=== PATIENT | female | born 1955 | race Caucasian/White ===

== ENCOUNTER 2025-07-31 07:46 | Inpatient (IN) ==
[2025-07-31 08:03] VITALS: TEMP 98.8
--- NOTE | 2025-07-31 08:05 | Emergency Department Note ---
History of Present Illness General Stated complaint: CHEST PAIN Time Seen by Provider: 07/31/25 07:48 History of Present Illness Maximum Pain Intensity: 8 This is a 70-year-old female that presents to the emergency department via EMS with complaints of "chest pain". The patient woke up today noting central chest pain. EMS summoned. Patient had total of 3 nitro at home, 1 in route. She also had a total of four 81mg aspirin. The patient describes a discomfort in the center of the chest as significant, 8/10. Minimal radiation to the back. No tearing pain. No nausea or vomiting. No preceding or current illness. No fever. No history of NM or PE. Home Medications Medication Instructions Recorded Confirmed Type alprazolam 0.25 mg tablet 0.25 mg PO DAILY PRN Anxiety 07/08/24 07/31/25 History cholecalciferol (vitamin D3) 25 25 mcg PO DAILY 07/08/24 07/31/25 History mcg (1,000 unit) capsule (Vitamin D3) levothyroxine 50 mcg tablet 50 mcg PO DAILY 07/08/24 07/31/25 History lisinopril 10 mg tablet 10 mg PO DAILY 07/08/24 07/31/25 History riboflavin (vitamin B2) 100 mg 100 mg PO DAILY PRN Unknown 07/08/24 07/31/25 History tablet simethicone 80 mg chewable tablet 80 mg PO DAILY PRN Constipation 07/08/24 07/31/25 History famotidine 20 mg tablet 20 mg PO BID 07/31/25 07/31/25 History nitroglycerin 0.4 mg sublingual 0.4 mg buccal ONCE PRN Chest Pain 07/31/25 07/31/25 History tablet Allergies Allergy/AdvReac Type Severity Reaction Status Date / Time sumatriptan Allergy throat Verified 06/09/25 13:52 tightness Past Med/Surg History Problem List (Updated 07/31/25 @ 16:37 by Alcides Posey PA-C) STEMI (ST elevation myocardial infarction) (Acute) Heart palpitations (Acute) Chest pain (Acute) Chronic SI joint pain Lumbar facet joint syndrome Chronic low back pain Stress incontinence HTN (hypertension) Hypothyroidism Surgical History History of breast lift History of bilateral knee replacement Social History Smoking Status: Never smoker Hx Alcohol Use: Yes Alcohol type Comment: socially Hx Substance Use: No Preferred Language: Micronesian Communication Ability: Effective Visual Impairment: No Limitations Hearing Ability: Normal Beliefs That Will Affect Care: None marital status: Current Living Situation: Spouse current occupational status: employed current occupation: clinical therapist in behavioral health with [employer] Feels Safe at Home: Yes Review of Systems A total of 10 systems reviewed and were otherwise negative Physical Exam Vital Signs Vital Signs - 24 hr 07/31/25 07:50 07/31/25 07:58 Temperature 37.1 C Temperature Source Oral Pulse Rate 101 H 97 H Pulse Rhythm Regular Pulse Strength Normal Respiratory Rate 19 Respiratory Effort / Characteristics Non-Labored Spontaneous Respiratory Depth Normal Respiratory Pattern Regular Blood Pressure 175/101 H Blood Pressure Mean 125 Pulse Oximetry 99 Oxygen Delivery Method Room Air Sepsis Recent Fever Within 48 Hours No Sepsis New/Unexplained Change in Mental Status No Sepsis Action Taken by Nursing Physician Notified VITAL SIGNS - Vital signs and nursing notes were reviewed. Hypertensive, stable and afebrile. GENERAL - 70-year-old female appearing her stated age who is in no acute distress but appears to be in pain. Communicates well with provider and answers questions appropriately. SKIN - Without rashes. No meningeal or petechial rash. HEAD - NC/AT. EYES - PERRL with EOMI bilaterally. Sclera anicteric. EARS - No deformities of external structures noted on gross examination bilaterally. NOSE - Midline and without cyanosis. No epistaxis or purulent drainage noted. MOUTH/OROPHARYNX - Without perioral cyanosis. NECK - Neck with FROM. No nuchal rigidity. LUNGS - Chest wall symmetric without accessory muscle use, intercostals retractions, or central cyanosis. Normal vesicular breath sounds CTA B/L. No wheezes, rales, or rhonchi appreciated. CARDIAC - RRR ABDOMEN - Abdominal contour normal without pulsations or visible masses. BS normoactive all four quadrants. No tenderness, palpable masses, hepatosplenomegaly, or ascites noted. EXTREMITIES - No clubbing or peripheral cyanosis. +5/5 strength noted in UE/LE bilaterally. NEUROLOGIC - Cranial nerves II through XII grossly intact. PSYCH -alert, oriented and pleasant on exam Course Administered Medications Acetaminophen (Acetaminophen 325 Mg Tab) 650 mg PO Q4H PRN PRN Reason: MILD Pain (Scale 1,2,3) Stop: 08/30/25 09:20 Last Admin: 07/31/25 13:33 Dose: 650 mg Documented By: JULIAN Atorvastatin Calcium (Atorvastatin 40 Mg Tab) 80 mg PO QAM [facility] Stop: 08/30/25 09:24 Last Admin: 07/31/25 13:33 Dose: 80 mg Documented By: JULIAN Metoprolol Tartrate (Metoprolol Tartrate 25 Mg Tab) 25 mg PO BID [facility] Stop: 08/30/25 09:29 Last Admin: 07/31/25 13:33 Dose: 25 mg Documented By: JULIAN Miscellaneous (Icu Protocol For Hyperglycemia) 1 each N/A ACHS [facility] Stop: 08/02/25 13:39 Last Admin: 07/31/25 15:00 Dose: Not Given Documented By: JULIAN Discontinued Medications Epinephrine HCl (Epinephrine 1.5" Ndl 0.1 Mg/Ml Syr) Confirm Administered Dose 2 mg IV .STK-MED ONE Stop: 07/31/25 08:09 Last Admin: 07/31/25 09:28 Dose: Not Given Documented By: dorcas Fentanyl Citrate (Fentanyl Citrate Pf 100 Mcg/2 Ml Vial) Confirm Administered Dose 100 mcg .ROUTE .STK-MED ONE Stop: 07/31/25 08:03 Last Increment: 07/31/25 09:24 Dose: 50 mcg Documented By: dorcas Heparin Sodium (Porcine) (Heparin (Porcine) 1000 Unit/Ml 10 Ml (Manufacturing Engineering Technician Use Only)) Confirm Administered Dose 10,000 units .ROUTE .STK-MED ONE Stop: 07/31/25 08:03 Last Admin: 07/31/25 09:25 Dose: 10,000 units Documented By: dorcas Heparin Sodium (Porcine) (Heparin (Porcine) 1000 Unit/Ml 10 Ml (Manufacturing Engineering Technician Use Only)) Confirm Administered Dose 10,000 units .ROUTE .STK-MED ONE Stop: 07/31/25 08:32 Last Admin: 07/31/25 09:28 Dose: 1,000 units Documented By: dorcas Heparin Sodium/Sodium Chloride (Heparin In Nss Infusion 1000 Unit/500 Ml (2 U/Ml) Bag) Confirm Administered Dose 3,000 units IV .STK-MED ONE Stop: 07/31/25 08:03 Last Admin: 07/31/25 09:25 Dose: 3,000 units Documented By: dorcas Acetaminophen (Ofirmev) 1,000 mg in 100 mls @ 400 mls/hr IV NOW STA Stop: 07/31/25 11:26 Last Infusion: 07/31/25 13:12 Dose: Infused Documented By: Admin: 07/31/25 11:50 Dose: 400 mls/hr Documented By: FLOR Ioversol (Optiray 350) Confirm Administered Dose 1 ml .ROUTE .STK-MED ONE Stop: 07/31/25 08:04 Last Admin: 07/31/25 09:26 Dose: 150 ml Documented By: dorcas Midazolam HCl (Midazolam Hcl 1 Mg/Ml 2ml Vial) Confirm Administered Dose 2 mg .ROUTE .STK-MED ONE Stop: 07/31/25 08:03 Last Admin: 07/31/25 09:25 Dose: 2 mg Documented By: dorcas Nicardipine HCl (Nicardipine 2,000 Mcg/20 Ml Syr) Confirm Administered Dose 2,000 mcg .ROUTE .STK-MED ONE Stop: 07/31/25 08:04 Last Admin: 07/31/25 09:27 Dose: 2,000 mcg Documented By: dorcas Nitroglycerin/Dextrose (Nitroglycerin/D5w 100mcg/Ml 20ml Syr) Confirm Administered Dose 2,000 mcg .ROUTE .STK-MED ONE Stop: 07/31/25 08:04 Last Admin: 07/31/25 09:27 Dose: 2,000 mcg Documented By: dorcas Ticagrelor (Ticagrelor 90 Mg Tab) Confirm Administered Dose 180 mg .ROUTE .STK- MED ONE Stop: 07/31/25 08:10 Last Admin: 07/31/25 09:28 Dose: 180 mg Documented By: dorcas Medical Decision Making Laboratory Data 07/31/25 07:56 07/31/25 07:56 Lab Results 07/31/25 07/31/25 Range/Units 07:56 07:59 WBC 7.84 (4.8-10.8) K/ul RBC 4.09 L (4.20-5.40) M/uL Hgb 13.1 (12.0-16.0) g/dL POC Hgb 12.9 (12.0-16.0) g/dl Hct 38.9 (37.0-47.0) % POC Hct 38 (37-47) % MCV 95.1 (80.0-100.0) fL MCH 32.0 (25.0-34.0) pg MCHC 33.7 (32.0-36.0) g/dL RDW Std Deviation 45.8 (36.4-46.3) fL RDW Coeff of Obi 13.1 (11.5-14.5) % Plt Count 333 (130-400) K/uL MPV 9.3 L (9.4-12.4) fL Immature Gran % (Auto) 0.1 % Neut % (Auto) 61.5 % Lymph % (Auto) 29.5 % [place] % (Auto) 7.1 % Eos % (Auto) 1.3 % Baso % (Auto) 0.5 % Neut # (Auto) 4.82 (1.40-6.50) K/uL Lymph # (Auto) 2.31 (1.20-3.40) K/uL [place] # (Auto) 0.56 (0.11-0.59) K/uL Eos # (Auto) 0.10 (0.00-0.50) K/uL Baso # (Auto) 0.04 (0.00-0.20) K/uL Immature Gran # (Auto) 0.01 (0.01-0.20) K/uL PT 10.1 (9.0-12.0) Seconds INR 1.0 (0.9-1.1) APTT 23 (21-31) Seconds PTT Ratio 0.8 POC Sodium 144 (135-144) mmol/L Sodium 141 (136-145) mmol/L POC Potassium 3.5 (3.3-5.0) mmol/L Potassium 3.5 (3.5-5.1) mmol/L POC Chloride 106 (101-112) mmol/L Chloride 108 H (98-107) mmol/L Carbon Dioxide 27 (21-32) mmol/L POC Total CO2 23 L (24-31) mmol/L Anion Gap 6 (3-11) POC Anion Gap 20.0 (16-25) mmol/L POC BUN 13 (7-18) mg/dl BUN 15 (6-23) mg/dl Creatinine 0.58 L (0.6-1.2) mg/dl POC Creatinine 0.6 (0.6-1.3) mg/dl Est Cr Clr Drug Dosing 90.9 ml/min eGFR 98.51 BUN/Creatinine Ratio 25.9 H (10-20) Glucose 143 H (70-99(Fasting)) mg/dl POC Glucose (other) 135 H (70-99) mg/dl Estimat Average Glucose 108 mg/dl Hemoglobin A1c 5.4 (4.5-5.6) % Calcium 8.7 (8.6-10.3) mg/dl POC Ioniz Calcium Kasi 1.19 (1.12-1.32) mmol/l Magnesium 1.8 (1.7-2.4) mg/dl Total Bilirubin 0.3 (0.2-1.0) mg/dl AST 55 H (13-39) U/L ALT 86 H (7-52) U/L Alkaline Phosphatase 63 (34-104) U/L Troponin I High Sens 194.6 H* (0-14) pg/ml Total Protein 6.4 (6.0-8.3) gm/dl Albumin 4.2 (3.4-5.0) gm/dl Globulin 2.2 L (2.5-4.0) gm/dl Albumin/Globulin Ratio 1.9 (0.9-2) Lipase 20 (11-82) U/L TSH 2.761 (0.300-4.500) uIu/ml MDM Narrative Patient was seen and evaluated as above in room A03. Review was performed of triage nursing notes and vital signs. I did review pertinent previous visits and patient history. After obtaining a thorough history and physical examination the above work up was performed. Patient presents to us today for evaluation of chest pain. An EKG was performed and reveals ST elevation myocardial infarction. This is a dynamic change compared to EKG performed on her recent visit. Heart alert was called. The Manufacturing Engineering Technician team immediately presented to bedside and the patient was taken to the Manufacturing Engineering Technician for further evaluation and management. Labs then resulted. There is no leukocytosis or concerning anemia. Coags are normal. No evidence of emergent kidney or liver failure. There is initial troponin elevation at 194. TSH was euthyroid state. Lipase negative. Chest x- ray ordered however the patient was taken promptly to the Manufacturing Engineering Technician noting the heart alert. The patient did have a negative chest x-ray about 1 week ago. Case also discussed with the hospitalist service. Please refer to further documentation regarding her stay. In the evaluation and treatment of this patient the following differential diagnoses were entertained: NM, PE, pericarditis, costochondritis, dissection, among others Impression & Plan STEMI (ST elevation myocardial infarction), Chest pain Discharge Plan Visit Data Stated Complaint: CHEST PAIN ED Provider: Corrine Moreno ED Midlevel Provider: Alcides Posey Discharge Problem: STEMI (ST elevation myocardial infarction), Chest pain Patient Disposition: Admitted As Inpatient Condition: Good Discharge Instructions Interventions: ED Discharge Assessment Last Done: 07/31/25 08:07
[2025-07-31 08:09] LABS: Hematocrit (blood only) 38.9 % (37.0-47.0); Hemoglobin 13.1 g/dL (12.0-16.0); Immature Granulocytes # (auto) 0.01 K/uL (0.01-0.20); Immature Granulocytes % (auto) 0.1 %; Mean Corpuscular Hemoglobin 32.0 pg (25.0-34.0); Mean Corpuscular Volume 95.1 fL (80.0-100.0); Platelet Count 333 K/uL (130-400); RDW Standard Deviation 45.8 fL (36.4-46.3); Red Blood Count 4.09 M/uL (4.20-5.40); White Blood Count 7.84 K/ul (4.8-10.8)
--- NOTE | 2025-07-31 08:10 | Pre Anesthesia Assessment ---
Date of Service July 31, 2025 Pre Sedation Assessment Vital Signs Temp Pulse Resp BP Pulse Ox O2 Del Method 07/31/25 07:58 97 H 07/31/25 07:50 98.8 F 101 H 19 175/101 H 99 Room Air Cardiovascular + regular rate Respiratory + respiratory effort normal Pre-Sedation Airway Assessment Smoking Status: Never smoker Hx Sleep Apnea: No Hx Difficult Intubation: No Short, Thick Neck: No Thyromental Distance: > or= 3.5 Finger Breadths Oral Cavity: + Dental Abnormalities Mallampati Class: II ASA: ASA3 Procedure Planning Contraindications for Sedation: none Current Medications Reviewed: Yes Notes The planned sedation has been discussed with the patient. Informed Consent was obtained. I have identified the patient, determined the appropriateness of sedation and have assessed the patient immediately prior to the procedure. All medicine(s) and interventions are by my order.
--- NOTE | 2025-07-31 08:16 | Emergency Department Note ---
ED Visit Note I was consulted by the Advanced Practice Provider. I personally made/approved the management plan and take responsibility for the patient management. I performed a substantive portion of the visit. This includes the aspects of history, physical and personally seeing the patient. Medical decision making was collaborative, heart alert was called. EKG confirms ST elevation DE. Please refer to Alcides Posey PA-C's notes for further details of the history, physical and visit. .
--- NOTE | 2025-07-31 08:25 | History & Physical Report ---
Date of Service July 31, 2025 Assessment & Plan (1) STEMI (ST elevation myocardial infarction): Plan Patient is a 70-year-old female with past medical history significant for hypothyroidism, pancreatic lesion, HTN, diverticulosis, thickened endometrium, left renal cyst, prior tobacco use, history of palpitations and exertional chest pain with prior Zio patch monitoring showing benign ectopy and negative stress TTE, basal cell carcinoma on central forehead s/p excision, history of SVT, primary osteoarthritis of both knees, migraines, mixed stress and urge incontinence and insomnia who presented to the ED via EMS with c/o chest pain and was found to have an anterior STEMI. Anterior STEMI/100% acute mid LAD occlusion S/p PCI with MIR x 2 to LAD and MIR x 1 to circumflex performed by Dr. Espinoza. -Severe non-culprit coronary artery disease * 60+% proximal LAD, 90% ostial/proximal D1. * 80% hazy mid circumflex. Small to medium OM2 75% ostial. -Successful PCI of proximal and mid LAD with 2 nonoverlapping drug-eluting stents (approximately 3.0 x 12 Xience postdilated with 3.5 NC; 2.5 x 18 Elpidio postdilated with 2.0 NC). -Successful PCI mid circumflex with single drug-eluting stent (2.5 x 15 mm Elpidio; postdilated with 3.0 NC). Post-cath recs by Dr. Espinoza: Admit to ICU for continued monitoring. Loaded with ticagrelor 180mg in label cutter. Continue dual-antiplatelet therapy for at least 1 year. Trend troponins until peak, check TTE. Uptitrate beta-coy/KENDRICK as BP allows. High-dose statin therapy. TSH WNL. Check Hgb A1c, AM fasting lipid panel. Hgb A1c previously 5.8% as of 2yr ago. No prior known history of major cardiac events or CAD. Repeat EKG PRN if pt develops recurrence of chest pain/cardiopulmonary sx. Tele monitoring. Pt feeling relatively well s/p PCI. Has LALA which is improved from prior, will trial IV Tylenol. HTN BP has been relatively labile since presentation. Takes lisinopril 10mg daily THERAPIST RRT, did not take this yet today. Will continue this for now. Lopressor 25mg BID has been ordered as well. Mild AST, ALT elevations Can be seen with ACS, thought 2/2 low cardiac output and arterial hypoperfusion. Follow repeat CMP in AM. Could consider liver US if minimal or no improvement in repeat LFTs but will defer on this for now. GERD: Continue Pepcid. Hypothyroidism: TSH WNL. Continue current levothyroxine dosing. DVT Prophylaxis: SCDs/TEDs Code Status: FULL CODE Disposition: Admit to ICU Patient seen in collaboration with Dr. Avila. Please see addendum. I spent a total of 82 minutes coordinating, documenting, and providing care for this patient excluding time spent in the performance of separately billed services or time spent by another provider/QHP. This included personally reviewing all current laboratories and imaging studies, medical reconciliation, outpatient chart review and discussion with specialists. History of Present Illness Chief Complaint: Anterior STEMI Primary Care Provider: Kelley Kathleen MD Patient is a 70-year-old female with past medical history significant for hypothyroidism, pancreatic lesion, HTN, diverticulosis, thickened endometrium, left renal cyst, primary osteoarthritis of both knees, migraines, mixed stress and urge incontinence and insomnia who presented to the ED via EMS with c/o chest pain. Acute onset of centralized chest pain beginning this morning around 5:30AM. 810 pain with radiation into back. Took 3 SL nitroglycerin at home and then received another SL nitroglycerin x 1 en route to ED by EMS in addition to 324mg ASA. EKG in ED revealed ST elevations in the anterior leads. HEART ALERT was called and patient was urgently taken to the label cutter. Previously seen in [facility] ED on 07/24/25 for chest pain, palpitations. EKG at that time revealed no ischemic changes, HS-troponin x 2 negative. Had prior stress TTE done on 05/19/25 which was negative for inducible ischemia; EF 55-59%, grade I DD, mild AVR and mild MR. Followed-up with PCP on 07/25/25. 14-day Zio patch was ordered and cardiology referral was placed. Former smoker. 1ppd x 33yr, quit in 1986. No known CAD as per records. No history of prior cardiac events as per records. Allergies Allergy/AdvReac Type Severity Reaction Status Date / Time sumatriptan Allergy throat Verified 06/09/25 13:52 tightness Home Medications Medication Instructions Recorded Confirmed Type alprazolam 0.25 mg tablet 0.25 mg PO DAILY PRN Anxiety 07/08/24 07/31/25 History cholecalciferol (vitamin D3) 25 25 mcg PO DAILY 07/08/24 07/31/25 History mcg (1,000 unit) capsule (Vitamin D3) levothyroxine 50 mcg tablet 50 mcg PO DAILY 07/08/24 07/31/25 History lisinopril 10 mg tablet 10 mg PO DAILY 07/08/24 07/31/25 History riboflavin (vitamin B2) 100 mg 100 mg PO DAILY PRN Unknown 07/08/24 07/31/25 Hi story tablet simethicone 80 mg chewable tablet 80 mg PO DAILY PRN Constipation 07/08/24 07/31/25 History famotidine 20 mg tablet 20 mg PO BID 07/31/25 07/31/25 History nitroglycerin 0.4 mg sublingual 0.4 mg buccal ONCE PRN Chest Pain 07/31/25 07/31/25 History tablet Past Med/Surg History Problem List STEMI (ST elevation myocardial infarction) Heart palpitations (Acute) Chest pain (Acute) Chronic SI joint pain Lumbar facet joint syndrome Chronic low back pain Stress incontinence HTN (hypertension) Hypothyroidism Surgical History History of breast lift History of bilateral knee replacement Social History Smoking Status: Never smoker Hx Alcohol Use: Yes Alcohol type Comment: socially Hx Substance Use: No Preferred Language: Uzbek Communication Ability: Effective Visual Impairment: No Limitations Hearing Ability: Normal Beliefs That Will Affect Care: None marital status: Current Living Situation: Spouse current occupational status: employed 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 Physical Exam Physical Exam: General: WD/WN, NAD, sitting up in bed, A&Ox3, at bedside (seen in bay 4 of cardiovascular pavilion) HEENT: Normocephalic, atraumatic, moist mucous membranes Respiratory: Normal respiratory effort, CTAB, on RA Cardiovascular: RRR, no BLE edema Abdomen/GI: Normal bowel sounds, soft, nontender to palpation in all quadrants Extremities/Musculoskeletal: R wrist access site, otherwise actively moves all extremities Neurologic: No overt focal deficits, CN's II-XI not formally tested but appear grossly intact bilaterally Results & Data Results & Data Vital Signs (Past 12 Hours) Vital Signs Temp Pulse Resp BP Pulse Ox O2 Del Method 07/31/25 07:58 97 H 07/31/25 07:50 37.1 C 101 H 19 175/101 H 99 Room Air Laboratory Results Short CBC 07/31/25 Range/Units 07:56 WBC 7.84 (4.8-10.8) K/ul Hgb 13.1 (12.0-16.0) g/dL Hct 38.9 (37.0-47.0) % Plt Count 333 (130-400) K/uL Code Status & VTE Plan VTE Prophylaxis Plan VTE Prophylaxis will be ordered: Yes Supervising Physician Co-Signing Physician Notes Patient is seen and examined after cardiac catheterization earlier today. States feeling well postprocedure. Chest pain much improved, currently had only minimal discomfort. Denies any nausea, vomiting, dizziness, dyspnea. Family at bedside. On exam patient is moderately built and nourished, no apparent distress, normocephalic atraumatic, EOMI, normal breath sounds, clear to auscultation, S1-S2, no murmur, no pedal edema, abdomen soft, nontender, normal bowel sounds, alert, awake, oriented, grossly nonfocal deficits. Patient is currently being managed for acute STEMI s/p drug-eluting stent to LAD, circumflex. Appreciate cardiology help. Continue aspirin, Brilinta, KENDRICK inhibitor, metoprolol, statin. Blood pressure elevated likely situational. Monitor blood pressure closely. Will follow-up on echo. Needs follow-up with cardiology on discharge. Personally reviewed blood work, imaging studies, EKG. I have reviewed the advanced practitioner's documentation on the date of service referred in note and agree with plan. Patient's care is coordinated with Kimi Emmanuel PA-C. Please refer to the documentation above for details of patient's presentation and for discussion of other issues. I spent a total of24 minutes coordinating, documenting, and providing care for this patient excluding time spent in the performance of separately billed services or time spent by another provider/QHP.
[2025-07-31 08:28] LABS: Alanine Aminotransferase 86.0 U/L (7-52); Albumin Globulin Ratio 1.9 (0.9-2); Albumin Level 4.2 gm/dl (3.4-5.0); Alkaline Phosphatase 63.0 U/L (34-104); Anion Gap 6.0 (3-11); Bilirubin,Total 0.3 mg/dl (0.2-1.0); Blood Urea Nitrogen 15.0 mg/dl (6-23); Calcium 8.7 mg/dl (8.6-10.3); Carbon Dioxide 27.0 mmol/L (21-32); Chloride 108.0 mmol/L (98-107); Creatinine Clr Calc Pharmacy 90.9 ml/min; Globulin 2.2 gm/dl (2.5-4.0); Glucose 143.0 mg/dl (70-99(Fasting)); Lipase 20.0 U/L (11-82); Magnesium 1.8 mg/dl (1.7-2.4); Potassium 3.5 mmol/L (3.5-5.1); Sodium 141.0 mmol/L (136-145); Total Protein 6.4 gm/dl (6.0-8.3)
[2025-07-31 08:37] LABS: INR 1.0 (0.9-1.1); Partial Thromboplastin Time 23 Seconds (21-31); Prothrombin Time 10.1 Seconds (9.0-12.0)
[2025-07-31 08:43] LABS: Thyroid Stimulating Hormone 2.761 uIu/ml (0.300-4.500)
--- NOTE | 2025-07-31 09:18 | Cardiology Consultation ---
Date of Consultation July 31, 2025 Assessment & Plan (1) STEMI (ST elevation myocardial infarction): Presentation consistent with anterior STEMI and recommend proceeding with emergent cardiac catheterization and likely primary PCI. No apparent contraindications to procedure. Discussed risks, benefits, alternatives of procedure with patient and they are willing to proceed. Further recommendations pending findings of coronary angiography. History of Present Illness History of Present Illness 70-year-old woman here with acute chest pain and ECG concerning for acute ID. Patient seen emergently in the ED after heart alert activated on arrival. No prior cardiac history. Cardiac risk factors include hypertension. Other medical issues include GERD, chronic low back pain, osteoarthritis post bilateral knee replacement. Chest pain began approximately 2 hours prior to arrival after awaking from sleep. Describes crushing substernal pain with associated nausea. Denies similar symptoms in the past. Was seen in the ED 1 week ago for chest pain but those symptoms very different than chest pain this morning and HS TropI negative x 2, ECG unremarkable. Chest pain at time of arrival 1010. Given a total of 3 nitroglycerin. Hemodynamically stable. EKG showed sinus rhythm with anterior ST elevations. Family history: No premature CAD Social history: , lives in [place]. Works in [place] at [employer] Allergies Allergy/AdvReac Type Severity Reaction Status Date / Time sumatriptan Allergy throat Verified 06/09/25 13:52 tightness Home Medications Medication Instructions Recorded Confirmed Type alprazolam 0.25 mg tablet 0.25 mg PO DAILY PRN Anxiety 07/08/24 07/31/25 History cholecalciferol (vitamin D3) 25 25 mcg PO DAILY 07/08/24 07/31/25 History mcg (1,000 unit) capsule (Vitamin D3) levothyroxine 50 mcg tablet 50 mcg PO DAILY 07/08/24 07/31/25 History lisinopril 10 mg tablet 10 mg PO DAILY 07/08/24 07/31/25 History riboflavin (vitamin B2) 100 mg 100 mg PO DAILY PRN Unknown 07/08/24 07/31/25 History tablet simethicone 80 mg chewable tablet 80 mg PO DAILY PRN Constipation 07/08/24 07/31/25 History famotidine 20 mg tablet 20 mg PO BID 07/31/25 07/31/25 History nitroglycerin 0.4 mg sublingual 0.4 mg buccal ONCE PRN Chest Pain 07/31/25 07/31/25 History tablet Patient History Surgical History History of breast lift History of bilateral knee replacement Social History Smoking Status: Never smoker Hx Alcohol Use: Yes Alcohol type Comment: socially Hx Substance Use: No Preferred Language: Sierra Leonean Communication Ability: Effective Visual Impairment: No Limitations Hearing Ability: Normal Beliefs That Will Affect Care: None marital status: Current Living Situation: Spouse current occupational status: employed current occupation: clinical therapist in behavioral health with [employer] Feels Safe at Home: Yes Review of Systems Review of Systems: Not obtained in the setting of emergent situation Physical Exam Physical Exam: General: Uncomfortable HEENT: Sclerae anicteric Lungs: Clear anteriorly Cardiac: Regular rate and rhythm, no murmurs. Vascular: 2+ radial Abdomen: Soft, nontender Extremities: Well perfused, no peripheral edema Neuro: Nonfocal Psych: Alert orient x3 Results & Data Vital Signs (Past 12 Hours) Vital Signs Temp Pulse Resp BP Pulse Ox O2 Del Method 07/31/25 07:58 97 H 07/31/25 07:50 98.8 F 101 H 19 175/101 H 99 Room Air PG Care Time/CCT Total # of Minutes Spent Total Time Spent with Patient: Total time spent is greater than 50% in coordination of care (as documented) at patient's floor/unit and/or counseling patient: Coding Level of Care Code 43357 OFFICE CONSULT LVL M Diagnoses STEMI (ST elevation myocardial infarction) I21.3
--- NOTE | 2025-07-31 09:18 | Post Anesthesia Assessment ---
Date of Service July 31, 2025 Post Sedation Assessment Vital Signs Temp Pulse Resp BP Pulse Ox O2 Del Method 07/31/25 07:58 97 H 07/31/25 07:50 98.8 F 101 H 19 175/101 H 99 Room Air Recovery Score Activity: Moves 4 extremities Respiration: Deep Breath/Cough Circulation: +/-20% PreAnes Value Consciousness: Fully Awake Oxygen Saturation: O2 needed for >90% Discharge Sedation Level of Care: Fast Track Phase II
[2025-07-31] MEDS ORDERED: ONDANSETRON INJ 2 MG/ML 2 ML VIAL IV PRN (09:21)
[2025-07-31] MEDS: HEPARIN (PORCINE) 1000 UNIT/ML 10 ML (CATH LAB USE ONLY) ONE ×2 (09:25→09:28)
[2025-07-31] MEDS: MIDAZOLAM HCL 1 MG/ML 2ML VIAL ONE (09:25)
[2025-07-31] MEDS: OPTIRAY 350 ONE (09:26)
[2025-07-31] MEDS: niCARdipine 2,000 MCG/20 ML SYR ONE (09:27)
[2025-07-31] MEDS: NITROGLYCERIN/D5W 100MCG/ML 20ML SYR ONE (09:27)
[2025-07-31] MEDS: TICAGRELOR 90 MG TAB ONE (09:28)
--- NOTE | 2025-07-31 09:51 | Cardiac Catheterization ---
[facility] Data: Finished Cloth Examiner Cardiac Status Clinical evaluation leading to the procedure CAD Presenation: STEMI Anginal Classification: CCS IV Diagnostic Physicians Name: Elías Espinoza MD Closure Device Recommendations: PCI without planned CABG Cardiac Cath Procedure Full Procedure Date July 31, 2025 Pre-Procedure Diagnosis Pre-Procedure Diagnosis: STEMI AUC Score AUC Score: 9 Post-Procedure Diagnosis Post-Procedure Diagnosis: Severe CAD, Successful PCI and Elevated Intracardiac Pressures Procedure(s) Performed Procedure(s) Performed: Coronary Angiography, Left Heart Cath, Drug Eluting Stent and IVUS Orthopedics Nurse Elías Espinoza MD Test Fixture Designer(s) Zuhair Estimated Blood Loss Estimated Blood Loss: 30 Medication(s) Medication(s): Fentanyl, Heparin, Lidocaine 1%, Nicardipine, Nitroglycerin and Versed Medication(s): Ticagrelor Summary of Findings Indication: STEMI/Heart Alert Access: 6 Fr slender right radial artery Catheters: EBU 3.5 guide, diagnostic JR4 Findings: LM -normal caliber, no significant disease LAD -medium caliber, 60% proximal stenosis. 100% acute mid occlusion. Circumflex -medium caliber, proximal luminal irregularities, 80% hazy mid segment stenosis. 80% ostial small to medium OM2. Medium OM 3 without significant disease. RCA -dominant, large caliber 30% proximal disease, diffuse 20 to 30% mid segment disease. Distal luminal irregularities. 40% proximal RPDA. Right posterior AV branch without disease. LVEDP -30 (post procedure) -- PCI -- Antithrombotic therapy: Heparin, ticagrelor Procedure: Left main cannulated with EBU 3.5 guide BMW wire passed across lesion into distal vessel Mid LAD lesion predilated with 2.5 compliant balloon Dilated lesion stented with 2.5 x 18 mm [place] drug-eluting stent Stent post-dilated with 3.0 noncompliant balloon Sapp IVUS catheter placed to mid LAD. Pullback revealed well-expanded, well apposed mid LAD stent. Had 60%+ proximal, mildly calcified stenosis. No significant ostial LAD or left main disease. Proximal LAD stented with 3.0 x 12 mm Xience drug-eluting stent ending just prior to takeoff of D1. Stent postdilated with 3.5 NC IC vasodilators administered for spasm Post procedure SAMINA 3 flow, stents well expanded with minimal residual stenosis and no apparent cardiac complications. BMW wire redirected into circumflex and across mid circumflex stenosis into OM 3 Mid circumflex direct stented with 2.5 x 15 mm [place] drug-eluting stent Stent postdilated with 3.0 NC IC vasodilators administered for spasm Post procedure SAMINA 3 flow, stent well expanded with minimal residual stenosis and no apparent cardiac complications. Arterial Closure: TR band Summary: 1. Anterior STEMI/100% acute mid LAD occlusion 2. Severe non-culprit coronary artery disease - 60+% proximal LAD, 90% ostial/proximal D1 80% hazy mid circumflex. Small to medium OM2 75% ostial 3. Elevated intracardiac filling pressure 4. Successful PCI of proximal and mid LAD with 2 nonoverlapping drug-eluting stents (proximal 3.0 x 12 Xience postdilated with 3.5 NC; mid 2.5 x 18 Elpidio postdilated with 2.0 NC). 5. Successful PCI mid circumflex with single drug-eluting stent (2.5 x 15 mm [place]; postdilated with 3.0 NC). Recommendations: Admit to ICU for continued monitoring Loaded with ticagrelor 180 mg in Finished Cloth Examiner Continue dual-antiplatelet therapy for at least 1 year. Trend troponins until peak, Check Echo Uptitrate beta-coy/KENDRICK as BP allows High-dose statin Hemodynamics Rest Ao:: 175/99/147 Final Ao: 141/81/109 LV: 148/30 Recommendations Recommendations: PCI without planned CABG Radiation Exposure (mGy) 1840 Contrast (mls) 150 Anesthesia Moderate 4183-3396 Procedural Complication(s) None Disposition ICU I attest to the content of the Intraoperative Record and any orders documented therein. Any exceptions are noted below. [facility] Card Cath Procedure Codes Cardiac Catheterization Procedure 1: Cardiovascular Cath Procedures: 25374 Coronaries and LHC (+/-LV) Therapeutic Services & Ancillary Procedure 1: Cardiovascular Tx and Anc Procedures: 32154 IV Ultrasound (Coronary or Graft) Moderate Sedation Procedure 1: Sedation/Anesthesia: 20503 Mod Sedation by the same physician;Init15 Min Child Age 5 & Up Procedure 2: Sedation/Anesthesia: 01587 Mod Sedation by the same physician; Ea [id number] Minutes Stenting Procedure 1: Cardiovascular Stent Procedures: 90334 Perc transluminal revascularization of acute sub/total occl, aMI PG Care Time/CCT Total # of Minutes Spent Total Time Spent with Patient: Total time spent is greater than 50% in coordination of care (as documented) at patient's floor/unit and/or counseling patient:
--- NOTE | 2025-07-31 11:15 | Critical Care Consultation ---
Date of Consultation July 31, 2025 Assessment & Plan (1) STEMI (ST elevation myocardial infarction): (2) HTN (hypertension): Plan Patient is a 62-year-old female who presented to the emergency department 07/31/2025 for acute chest pain that had been present for 2 hours. Chest pain was crushing in nature. Found to have anterior ST elevation and elevated troponin. Taken emergently to the Linole[facility] Layer Apprentice. She was found to have multivessel coronary artery disease, LAD received MIR x 2 to 100% mid LAD stenosis and 60% proximal LAD stenosis. Also received MIR for 75% stenosis and mid circumflex. The patient tolerated the procedure well. She was taken to cath holding and will be admitted to the ICU for monitoring post PCI. Reason Critically Ill: Anterior STEMI status post PCI with MIR x 2 to LAD and MIR x 1 to circumflex (07/31/2025) Hypertension Hypothyroidism Neuro: Awake and alert. States that she has a headache. No focal deficits. Will order 1 g of IV Tylenol for headache. Cardiac: Anterior STEMI status post PCI with MIR x 2 to LAD and MIR x 1 to circumflex (07/31/2025) Hypertension Patient was loaded with ticagrelor after PCI. Lipid profile and A1c are pending. Started on Lipitor 80 mg daily. Echocardiogram was performed, read is pending. Started on Brilinta 90 twice daily and aspirin 81 mg daily. Blood pressure 150 systolic, takes lisinopril 10 mg as a home medication which was continued, likely should be uptitrated to 20 mg. Metoprolol tartrate 25 mg twice daily has also been ordered. Monitored on telemetry. Repeat EKG and troponin if chest pain develops. Respiratory: Resting comfortably on room air. Lungs are clear. No chest x-ray was performed today. Chest x-ray from 03/24 was clear. GI: History of GERD. Started on pantoprazole for GI prophylaxis. Has heart healthy diet ordered. RENAL/LYTES: Renal function electrolytes acceptable at this time. Bicarb slightly low. Monitor urine output. Repeat chemistry in AM. : Voiding without difficulty. No indication for Soliz at this time. ENDO: Blood glucose 143 on arrival. A1c is pending. Lipid profile is pending. Started on atorvastatin per cardiology. Hypothyroidism, continue home Synthroid. HEME: Cell counts acceptable on admission. ID: No symptoms or concerns for infection at this time. No indication for antibiotics. Feeding: Heart healthy diet Fluids: None Analgesia: None Activity: Out of bed with assistance Thromboprophylaxis: Place SCDs Ulcer prophylaxis: Pantoprazole Glycemic control: Blood glucose acceptable at this time, no need for insulin. Bowels: None Indwelling catheters: Peripheral IV Antibiotics: None Plan: Patient will be admitted to the ICU for monitoring post STEMI and PCI to LAD and circumflex. She does not have any complaints at this time. Chest pain has almost completely resolved. Resting comfortably on room air. She has been started on atorvastatin, Brilinta and aspirin per cardiology. Metoprolol was also started. On her home lisinopril dose which can likely be uptitrated. Com plaining of a headache which we will treat with Tylenol. Echocardiogram has been performed and is pending. I have personally spent 55 minutes of critical care time in the direct management of this patient. This is a life/limb threatening event. This includes time spent evaluating patient, direct bedside care, chart review, placing orders, interpretation of diagnostic studies, discussion with consultants, patient, and family members, as well as other required patient management activities. This time is exclusive of all separately billable procedures, and teaching time and separate from and in addition to any other critical care service time. History of Present Illness Reason for Consultation: STEMI Requesting Physician: Elías Espinoza MD Attending Physician: Elías Espinoza MD History of Present Illness Patient is a 70-year-old female who presented to the emergency department this morning with 2 hours of crushing chest pain. EKG was obtained and showed ST elevation in anterior leads concerning for STEMI, troponin was elevated at 194. A code heart was alerted and the patient was taken emergently to the Linole[facility] Layer Apprentice. The patient was found to have 100% mid LAD occlusion treated with MIR, proximal LAD 60% stenosis treated with MIR, 75% mid circumflex treated with MIR. She was loaded with ticagrelor. The decision was made to admit her to the ICU post PCI. We evaluated the patient and cath holding she is resting comfortably on room air. She says that her chest pain has almost completely subsided. She has a small amount of pain that is on the left side but significantly improved. She is having headache. No shortness of breath or nausea. The patient had presented to the emergency department on 07/24/2025 for evaluation of burning chest pain on exertion. EKG and troponins at that time were normal. The patient was discharged to home. She followed up with her primary care provider. A cardiac monitor technician was placed and her primary care had placed a referral for cardiology. She carries a history of hypertension and hypothyroidism. She does not smoke or drink. She does not have a history of hyperlipidemia or diabetes. There is a family history of coronary artery disease in her father and her sister has atrial fibrillation. Allergies Allergy/AdvReac Type Severity Reaction Status Date / Time sumatriptan Allergy throat Verified 06/09/25 13:52 tightness Home Medications Medication Instructions Recorded Confirmed Type alprazolam 0.25 mg tablet 0.25 mg PO DAILY PRN Anxiety 07/08/24 07/31/25 History cholecalciferol (vitamin D3) 25 25 mcg PO DAILY 07/08/24 07/31/25 History mcg (1,000 unit) capsule (Vitamin D3) levothyroxine 50 mcg tablet 50 mcg PO DAILY 07/08/24 07/31/25 History lisinopril 10 mg tablet 10 mg PO DAILY 07/08/24 07/31/25 History riboflavin (vitamin B2) 100 mg 100 mg PO DAILY PRN Unknown 07/08/24 07/31/25 History tablet simethicone 80 mg chewable tablet 80 mg PO DAILY PRN Constipation 07/08/24 07/31/25 History famotidine 20 mg tablet 20 mg PO BID 07/31/25 07/31/25 History nitroglycerin 0.4 mg sublingual 0.4 mg buccal ONCE PRN Chest Pain 07/31/25 07/31/25 History tablet Patient History Surgical History History of breast lift History of bilateral knee replacement Social History Smoking Status: Never smoker Hx Alcohol Use: Yes Alcohol type Comment: socially Hx Substance Use: No Preferred Language: Algerian Communication Ability: Effective Visual Impairment: No Limitations Hearing Ability: Normal Beliefs That Will Affect Care: None marital status: Current Living Situation: Spouse current occupational status: employed 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 Negative except as noted in HPI. Physical Exam Physical Exam: Physical examination: General: Well-appearing, well-nourished and not in acute distress. HEENT: Normocephalic, atraumatic. Extraocular movements intact. Sclera are nonicteric. No JVD appreciated. Skin: Warm and dry. No rashes appreciated. No jaundice appreciated. Cardiovascular: Heart is a regular rate and rhythm, no murmurs appreciated on my exam. No significant lower extremity edema. Lungs: Clear bilaterally, no wheezing appreciated. No crackles. Nontachypneic. Resting comfortably on room air. Abdomen: Nondistended, nontender to palpation. Musculoskeletal: Normal muscle mass and tone. No gross joint deformity abnormalities. No effusions appreciated. Status post bilateral knee replacement. Neurologic: Awake and alert, oriented. CN II through XII are grossly intact. Speech is fluent. Nonfocal exam. Psychiatric: Appropriate cooperative during my exam. Results & Data Results & Data Vital Signs (Past 12 Hours) Vital Signs Temp Pulse Pulse Resp BP BP Pulse Ox 07/31/25 10:35 87 20 152/92 H 96 07/31/25 10:20 84 18 166/94 H 96 07/31/25 10:05 90 18 145/86 H 94 07/31/25 09:50 93 H 18 131/75 94 07/31/25 09:35 90 18 137/100 94 07/31/25 09:20 97 H 18 137/81 95 07/31/25 07:58 97 H 07/31/25 07:50 37.1 C 101 H 19 175/101 H 99 O2 Del Method 07/31/25 10:35 Room Air 07/31/25 10:20 Room Air 07/31/25 10:05 Room Air 07/31/25 09:50 Room Air 07/31/25 09:35 Room Air 07/31/25 09:20 Room Air 07/31/25 07:58 07/31/25 07:50 Room Air Coding Level of Care Code 63642 CRITICAL CARE 1ST 30-74M Diagnoses STEMI (ST elevation myocardial infarction) I21.3 HTN (hypertension) I10
[2025-07-31] MEDS: ACETAMINOPHEN 1,000 MG/100 ML VIAL IV STA (11:50)
[2025-07-31 13:06] LABS: Hemoglobin A1C 5.4 % (4.5-5.6)
[2025-07-31] MEDS: ACETAMINOPHEN 325 MG TAB PO PRN (13:33)
[2025-07-31] MEDS: ATORVASTATIN 40 MG TAB PO SCH (13:33)
[2025-07-31] MEDS: METOPROLOL TARTRATE 25 MG TAB PO SCH (13:33)
--- NOTE | 2025-07-31 14:55 | Electrocardiogram Report ---
Test Reason : Blood Pressure : */* mmHG Vent. Rate : 91 BPM Atrial Rate : 91 BPM P-R Int : 186 ms QRS Dur : 76 ms QT Int : 340 ms P-R-T Axes : 66 37 72 degrees QTcB Int : 418 ms Normal sinus rhythm Anterior infarct , possibly acute ACUTE MN / STEMI Abnormal ECG When compared with ECG of 24-Jul-2025 19:42, Anterior infarct is now Present ST elevation now present in Anterior leads Nonspecific T wave abnormality no longer evident in Anterior leads Confirmed by Celso Garcia ([id number]) on 07/31/2025 2:54:55 PM Referred By: REFERRED SELF Confirmed By: Celso Garcia
--- NOTE | 2025-07-31 16:50 | Emergency Department Note ---
ED Visit Note I was consulted by the Advanced Practice Provider. I personally made/approved the management plan and take responsibility for the patient management. I performed a substantive portion of the visit. This includes the aspects ofHistory, physical and medical decision making. Heart alert was called and the patient was taken to the catheterization lab. Please see Windy Mcgrath PA-C's notes for further details of the history, physical and visit. .
--- NOTE | 2025-07-31 17:00 | XCELERA ---
[id number]
[2025-07-31] MEDS: TICAGRELOR 90 MG TAB PO SCH (21:03)
[2025-08-01 02:09] VITALS: O2SAT 97
[2025-08-01 04:59] LABS: Hematocrit (blood only) 37.7 % (37.0-47.0); Hemoglobin 13.1 g/dL (12.0-16.0); Immature Granulocytes # (auto) 0.03 K/uL (0.01-0.20); Immature Granulocytes % (auto) 0.3 %; Mean Corpuscular Hemoglobin 32.9 pg (25.0-34.0); Mean Corpuscular Volume 94.7 fL (80.0-100.0); Platelet Count 324 K/uL (130-400); RDW Standard Deviation 44.8 fL (36.4-46.3); Red Blood Count 3.98 M/uL (4.20-5.40); White Blood Count 9.59 K/ul (4.8-10.8)
[2025-08-01 05:17] LABS: Alanine Aminotransferase 78.0 U/L (7-52); Albumin Globulin Ratio 1.8 (0.9-2); Albumin Level 4.0 gm/dl (3.4-5.0); Alkaline Phosphatase 58.0 U/L (34-104); Anion Gap 7.0 (3-11); Bilirubin,Total 0.5 mg/dl (0.2-1.0); Blood Urea Nitrogen 12.0 mg/dl (6-23); Calcium 8.9 mg/dl (8.6-10.3); Carbon Dioxide 27.0 mmol/L (21-32); Chloride 107.0 mmol/L (98-107); Cholesterol 182.0 mg/dl (0-200); Creatinine Clr Calc Pharmacy 83.7 ml/min; Globulin 2.2 gm/dl (2.5-4.0); Glucose 127.0 mg/dl (70-99(Fasting)); HDL Cholesterol 60.0 mg/dl; Magnesium 1.9 mg/dl (1.7-2.4); Potassium 3.9 mmol/L (3.5-5.1); Sodium 141.0 mmol/L (136-145); Total Protein 6.2 gm/dl (6.0-8.3); Triglycerides 135.0 mg/dl (0-150)
[2025-08-01] MEDS: LEVOTHYROXINE SODIUM 50 MCG TABLET PO SCH (06:36)
[2025-08-01] MEDS: ASPIRIN 81 MG ECTAB PO SCH (07:46)
[2025-08-01] MEDS: MAGNESIUM SULFATE / D5W 1 GM/100 ML BAG IV SCH (10:32)
[2025-08-01] MEDS: POTASSIUM CHLORIDE CRTAB 20 MEQ TABCR PO STA (10:33)
--- NOTE | 2025-08-01 12:30 | Cardiology Progress Note ---
Date of Service August 01, 2025 Assessment & Plan (1) STEMI (ST elevation myocardial infarction): Plan: Post PCI with MIR to proximal, mid LAD. Additional MIR to mid circumflex 2. Ischemic cardiomyopathyEF 45%, apical akinesis mid septal hypokinesis 3. Mild mitral regurgitation 4. Hypertension 5. DyslipidemiaLDL 95 Feeling well today. No recurrent chest pain. HS TropI has peaked. Hemodynamically and electrically stable. No signs of heart failure or access site complications on exam. From a cardiac standpoint okay with discharge today. Home on: DAPT with aspirin, ticagrelor. Potentially transition ticagrelor to clopidogrel after 1 month. We discussed postponing planned upcoming procedures as unable to interrupt DAPT for at least 6 months. Home on metoprolol XL 50 mg daily Continue home lisinopril 10 mg daily New atorvastatin 80 mg daily Follow-up with me in 1 to 2 weeks. Will further discuss cardiac rehab at that time (lives in [place] may be interested in [facility]). Admission and Anticipated Discharge Date Admission Date: July 31, 2025 Subjective Feeling well this morning. Denies any chest pain. No palpitations or shortness of breath. Telemetry reviewedno events. Review of Systems Review of Systems: All systems reviewed & are unremarkable except as noted in HPI & below Physical Exam Physical Exam: General: Comfortable HEENT: Sclerae anicteric Lungs: Clear anteriorly Cardiac: Regular rate and rhythm, no murmurs. Vascular: Right radial artery access site with no ecchymosis, hematoma. Distal pulse and sensation intact. Abdomen: Soft, nontender Extremities: Well perfused, no peripheral edema Neuro: Nonfocal Psych: Alert orient x3 Results & Data Vital Signs (Past 12 Hours) Vital Signs Pulse Resp BP Pulse Ox 08/01/25 11:22 97 08/01/25 08:00 75 08/01/25 06:00 76 15 97 08/01/25 06:00 129/84 08/01/25 06:00 129/84 08/01/25 06:00 129/84 08/01/25 06:00 129/84 08/01/25 06:00 129/84 08/01/25 05:00 130/77 08/01/25 05:00 130/77 08/01/25 05:00 130/77 08/01/25 05:00 130/77 08/01/25 05:00 130/77 08/01/25 05:00 76 14 95 08/01/25 04:54 84 18 97 08/01/25 04:54 143/90 H 08/01/25 04:54 143/90 H 08/01/25 04:54 143/90 H 08/01/25 04:54 143/90 H 08/01/25 04:54 143/90 H 08/01/25 04:01 176/89 H 08/01/25 04:01 176/89 H 08/01/25 04:01 176/89 H 08/01/25 04:01 176/89 H 08/01/25 04:01 176/89 H 08/01/25 04:00 89 23 93 08/01/25 03:01 160/83 H 08/01/25 03:01 160/83 H 08/01/25 03:01 160/83 H 08/01/25 03:01 160/83 H 08/01/25 03:01 160/83 H 08/01/25 03:00 87 20 97 08/01/25 02:01 141/90 H 08/01/25 02:01 141/90 H 08/01/25 02:01 141/90 H 08/01/25 02:01 141/90 H 08/01/25 02:01 141/90 H 08/01/25 02:00 88 19 97 08/01/25 01:01 136/67 08/01/25 01:01 136/67 08/01/25 01:01 136/67 08/01/25 01:01 136/67 08/01/25 01:01 136/67 08/01/25 01:00 81 17 97 PG Care Time/CCT Total # of Minutes Spent Total Time Spent with Patient: Total time spent is greater than 50% in coordination of care (as documented) at patient's floor/unit and/or counseling patient: Coding Level of Care Code 81353 SUB INP/OBS CARE 3/50MIN Diagnoses STEMI (ST elevation myocardial infarction) I21.3
--- NOTE | 2025-08-01 12:50 | Hospitalist Progress Note ---
Date of Service August 01, 2025 Assessment & Plan (1) STEMI (ST elevation myocardial infarction): Plan Patient is a 70-year-old female with past medical history significant for hypothyroidism, pancreatic lesion, HTN, diverticulosis, thickened endometrium, left renal cyst, prior tobacco use, history of palpitations and exertional chest pain with prior Zio patch monitoring showing benign ectopy and negative stress TTE, basal cell carcinoma on central forehead s/p excision, history of SVT, primary osteoarthritis of both knees, migraines, mixed stress and urge incontinence and insomnia who presented to the ED via EMS with c/o chest pain and was found to have an anterior STEMI. Anterior STEMI/100% acute mid LAD occlusion S/p PCI with MIR x 2 to LAD and MIR x 1 to circumflex performed by Dr. Espinoza. -Severe non-culprit coronary artery disease * 60+% proximal LAD, 90% ostial/proximal D1. * 80% hazy mid circumflex. Small to medium OM2 75% ostial. -Successful PCI of proximal and mid LAD with 2 nonoverlapping drug-eluting stents (approximately 3.0 x 12 Xience postdilated with 3.5 NC; 2.5 x 18 Elpidio postdilated with 2.0 NC). -Successful PCI mid circumflex with single drug-eluting stent (2.5 x 15 mm Elpidio; postdilated with 3.0 NC). -Lipid panel within normal limits -HbA1c 5.4 -Troponin trended down -ECHO: EF 45 to 50%. Apical akinesis. Severe hypokinesis of mid anteroseptal septum. Normal RV size and function. Mild mitral regurgitation. Normal estimated RA and PA pressures. No prior studies for comparison. Continue aspirin, Brilinta, metoprolol succinate 50 mg daily, lisinopril 10 mg daily and atorvastatin 80 mg daily Appreciate cardiology input Needs follow-up with cardiology on discharge HTN Continue metoprolol succinate, lisinopril Blood pressure stable Mild AST, ALT elevations Likely due to above Monitor GERD: Continue PPI Hypothyroidism: TSH WNL Continue current levothyroxine DVT Px: SCDs/TEDs Code Status: FULL CODE Disposition: Home Admission and Anticipated Discharge Date Admission Date: July 31, 2025 Subjective Patient is seen and examined at bedside States feeling a lot better today Denies any chest pain, dyspnea, nausea, vomiting, dizziness, abdominal pain Discussed with cardiology today Plan to be discharged home today Review of Systems Review of Systems: All systems reviewed & are unremarkable except as noted in Subjective Physical Exam Physical Exam: Physical Exam: Vitals signs as noted above General Appearance:Moderately built and nourished, no apparent distress Head: normocephalic, Atraumatic Eyes: normal inspection, EOMI Neck: supple, Trachea midline Respiratory/Chest: Normal breath sounds, CTA, No accessory muscle use Cardiovascular: S1, S2, No murmur Abdomen/GI:Soft, Non tender, Bowel sounds present Extremities/Musculoskeletal:normal inspection, no edema Neurologic/Psych:AAOX3, grossly no focal neurological deficits Skin: normal color, warm Results & Data Results & Data Vital Signs (Past 12 Hours) Vital Signs Pulse Resp BP Pulse Ox 08/01/25 11:22 97 08/01/25 08:00 75 08/01/25 06:00 76 15 97 08/01/25 06:00 129/84 08/01/25 06:00 129/84 08/01/25 06:00 129/84 08/01/25 06:00 129/84 08/01/25 06:00 129/84 08/01/25 05:00 130/77 08/01/25 05:00 130/77 08/01/25 05:00 130/77 08/01/25 05:00 130/77 08/01/25 05:00 130/77 08/01/25 05:00 76 14 95 08/01/25 04:54 84 18 97 08/01/25 04:54 143/90 H 08/01/25 04:54 143/90 H 08/01/25 04:54 143/90 H 08/01/25 04:54 143/90 H 08/01/25 04:54 143/90 H 08/01/25 04:01 176/89 H 08/01/25 04:01 176/89 H 08/01/25 04:01 176/89 H 08/01/25 04:01 176/89 H 08/01/25 04:01 176/89 H 08/01/25 04:00 89 23 93 08/01/25 03:01 160/83 H 08/01/25 03:01 160/83 H 08/01/25 03:01 160/83 H 08/01/25 03:01 160/83 H 08/01/25 03:01 160/83 H 08/01/25 03:00 87 20 97 08/01/25 02:01 141/90 H 08/01/25 02:01 141/90 H 08/01/25 02:01 141/90 H 08/01/25 02:01 141/90 H 08/01/25 02:01 141/90 H 08/01/25 02:00 88 19 97 08/01/25 01:01 13608/01/25 01:01 13608/01/25 01:01 13667 08/01/25 01:01 13608/01/25 01:01 08/01/25 01:00 81 17 97 Laboratory Results Short CBC 08/01/25 Range/Units 04:21 WBC 9.59 (4.8-10.8) K/ul Hgb 13.1 (12.0-16.0) g/dL Hct 37.7 (37.0-47.0) % Plt Count 324 (130-400) K/uL BMP 08/01/25 04:21 Sodium 141 Potassium 3.9 Chloride 107 Carbon Dioxide 27 BUN 12 Creatinine 0.63 Glucose 127 H Calcium 8.9 Liver Function 08/01/25 Range/Units 04:21 Total Bilirubin 0.5 (0.2-1.0) mg/dl AST 82 H (13-39) U/L ALT 78 H (7-52) U/L Alkaline Phosphatase 58 (34-104) U/L Albumin 4.0 (3.4-5.0) gm/dl
--- NOTE | 2025-08-01 12:58 | Discharge Summary ---
Date of Service August 01, 2025 Admission HPI Per Admitting Provider Patient is a 70-year-old female with past medical history significant for hypothyroidism, pancreatic lesion, HTN, diverticulosis, thickened endometrium, left renal cyst, primary osteoarthritis of both knees, migraines, mixed stress and urge incontinence and insomnia who presented to the ED via EMS with c/o chest pain. Acute onset of centralized chest pain beginning this morning around 5:30AM. 8/10 pain with radiation into back. Took 3 SL nitroglycerin at home and then received another SL nitroglycerin x 1 en route to ED by EMS in addition to 324mg ASA. EKG in ED revealed ST elevations in the anterior leads. HEART ALERT was called and patient was urgently taken to the [facility]. Previously seen in [facility] ED on 07/24/25 for chest pain, palpitations. EKG at that time revealed no ischemic changes, HS-troponin x 2 negative. Had prior stress TTE done on 05/19/25 which was negative for inducible ischemia; EF 55-59%, grade I DD, mild AVR and mild MR. Followed-up with PCP on 07/25/25. 14-day Zio patch was ordered and cardiology referral was placed. Former smoker. 1ppd x 33yr, quit in 1986. No known CAD as per records. No history of prior cardiac events as per records. Admission Exam Per Admitting Provider General: WD/WN, NAD, sitting up in bed, A&Ox3, at bedside (seen in bay 4 of cardiovascular pavilion) HEENT: Normocephalic, atraumatic, moist mucous membranes Respiratory: Normal respiratory effort, CTAB, on RA Cardiovascular: RRR, no BLE edema Abdomen/GI: Normal bowel sounds, soft, nontender to palpation in all quadrants Extremities/Musculoskeletal: R wrist access site, otherwise actively moves all extremities Neurologic: No overt focal deficits, CN's II-XI not formally tested but appear grossly intact bilaterally Principal Diagnosis ST elevation myocardial infarction Hypertension Discharge Data Allergies Allergy/AdvReac Type Severity Reaction Status Date / Time sumatriptan Allergy throat Verified 06/09/25 13:52 tightness Consultations 07/31/25 08:16 ED Decision to Admit Stat 07/31/25 08:23 Consult Cardiology Routine 07/31/25 08:24 Consult Electroencephalograph Technologist Routine Procedures Performed Operation Date: 07/31/25 08:10 Actual Procedures p Cineradiography w/Routine Exam - Elías Espinoza MD p Drug Eluting Stent SGl Vessel - Elías Espinoza MD p Aspiration/PCI w/MIR for Stemi - Elías Espinoza MD s IVUS Coronary Single Vessel - Elías Espinoza MD Ordered Studies Laboratory Results WBC 9.59 K/ul (4.8-10.8) 08/01/25 04:21 RBC 3.98 M/uL (4.20-5.40) L 08/01/25 04:21 Hgb 13.1 g/dL (12.0-16.0) 08/01/25 04:21 POC Hgb 12.9 g/dl (12.0-16.0) 07/31/25 07:59 Hct 37.7 % (37.0-47.0) 08/01/25 04:21 POC Hct 38 % (37-47) 07/31/25 07:59 MCV 94.7 fL (80.0-100.0) 08/01/25 04:21 MCH 32.9 pg (25.0-34.0) 08/01/25 04:21 MCHC 34.7 g/dL (32.0-36.0) 08/01/25 04:21 RDW Std Deviation 44.8 fL (36.4-46.3) 08/01/25 04:21 RDW Coeff of Obi 12.9 % (11.5-14.5) 08/01/25 04:21 Plt Count 324 K/uL (130-400) 08/01/25 04:21 MPV 9.5 fL (9.4-12.4) 08/01/25 04:21 Immature Gran % (Auto) 0.3 % 08/01/25 04:21 Neut % (Auto) 66.8 % 08/01/25 04:21 Lymph % (Auto) 20.9 % 08/01/25 04:21 [place] % (Auto) 10.4 % 08/01/25 04:21 Eos % (Auto) 1.1 % 08/01/25 04:21 Baso % (Auto) 0.5 % 08/01/25 04:21 Neut # (Auto) 6.40 K/uL (1.40-6.50) 08/01/25 04:21 Lymph # (Auto) 2.00 K/uL (1.20-3.40) 08/01/25 04:21 [place] # (Auto) 1.00 K/uL (0.11-0.59) H 08/01/25 04:21 Eos # (Auto) 0.11 K/uL (0.00-0.50) 08/01/25 04:21 Baso # (Auto) 0.05 K/uL (0.00-0.20) 08/01/25 04:21 Immature Gran # (Auto) 0.03 K/uL (0.01-0.20) 08/01/25 04:21 PT 10.1 Seconds (9.0-12.0) 07/31/25 07:56 INR 1.0 (0.9-1.1) 07/31/25 07:56 APTT 23 Seconds (21-31) 07/31/25 07:56 PTT Ratio 0.8 07/31/25 07:56 Activ Coag Time Kaolin 266 SECONDS (94-140) H 07/31/25 08:55 POC Sodium 144 mmol/L (135-144) 07/31/25 07:59 Sodium 141 mmol/L (136-145) 08/01/25 04:21 POC Potassium 3.5 mmol/L (3.3-5.0) 07/31/25 07:59 Potassium 3.9 mmol/L (3.5-5.1) 08/01/25 04:21 POC Chloride 106 mmol/L (101-112) 07/31/25 07:59 Chloride 107 mmol/L (98-107) 08/01/25 04:21 Carbon Dioxide 27 mmol/L (21-32) 08/01/25 04:21 POC Total CO2 23 mmol/L (24-31) L 07/31/25 07:59 Anion Gap 7 (3-11) 08/01/25 04:21 POC Anion Gap 20.0 mmol/L (16-25) 07/31/25 07:59 POC BUN 13 mg/dl (7-18) 07/31/25 07:59 BUN 12 mg/dl (6-23) 08/01/25 04:21 Creatinine 0.63 mg/dl (0.6-1.2) 08/01/25 04:21 POC Creatinine 0.6 mg/dl (0.6-1.3) 07/31/25 07:59 Est Cr Clr Drug Dosing 83.7 ml/min 08/01/25 04:21 eGFR 96.57 08/01/25 04:21 BUN/Creatinine Ratio 19.0 (10-20) 08/01/25 04:21 Glucose 127 mg/dl (70-99(Fasting)) H 08/01/25 04:21 POC Glucose (other) 135 mg/dl (70-99) H 07/31/25 07:59 Estimat Average Glucose 108 mg/dl 07/31/25 07:56 Hemoglobin A1c 5.4 % (4.5-5.6) 07/31/25 07:56 Calcium 8.9 mg/dl (8.6-10.3) 08/01/25 04:21 POC Ioniz Calcium Kasi 1.19 mmol/l (1.12-1.32) 07/31/25 07:59 Phosphorus 3.3 mg/dl (2.5-4.9) 08/01/25 04:21 Magnesium 1.9 mg/dl (1.7-2.4) 08/01/25 04:21 Total Bilirubin 0.5 mg/dl (0.2-1.0) 08/01/25 04:21 AST 82 U/L (13-39) H 08/01/25 04:21 ALT 78 U/L (7-52) H 08/01/25 04:21 Alkaline Phosphatase 58 U/L (34-104) 08/01/25 04:21 Troponin I High Sens 9762.0 pg/ml (0-14) H* D 08/01/25 11:49 Total Protein 6.2 gm/dl (6.0-8.3) 08/01/25 04:21 Albumin 4.0 gm/dl (3.4-5.0) 08/01/25 04:21 Globulin 2.2 gm/dl (2.5-4.0) L 08/01/25 04:21 Albumin/Globulin Ratio 1.8 (0.9-2) 08/01/25 04:21 Triglycerides 135 mg/dl (0-150) 08/01/25 04:21 Cholesterol 182 mg/dl (0-200) 08/01/25 04:21 LDL Cholesterol, Calc 95 mg/dl 08/01/25 04:21 VLDL Cholesterol, Calc 27 mg/dl (0-30) 08/01/25 04:21 HDL Cholesterol 60 mg/dl 08/01/25 04:21 Cholesterol/HDL Ratio 3.0 (0-5) 08/01/25 04:21 Lipase 20 U/L (11-82) 07/31/25 07:56 TSH 2.761 uIu/ml (0.300-4.500) 07/31/25 07:56 Nasal Screen MRSA (PCR) Negative (Negative) 07/31/25 Unknown Hospital Course (1) STEMI (ST elevation myocardial infarction): Plan Patient is a 70-year-old female with past medical history significant for hypothyroidism, pancreatic lesion, HTN, diverticulosis, thickened endometrium, left renal cyst, prior tobacco use, history of palpitations and exertional chest pain with prior Zio patch monitoring showing benign ectopy and negative stress TTE, basal cell carcinoma on central forehead s/p excision, history of SVT, primary osteoarthritis of both knees, migraines, mixed stress and urge incontinence and insomnia who presented to the ED via EMS with c/o chest pain and was found to have an anterior STEMI. Anterior STEMI/100% acute mid LAD occlusion S/p PCI with MIR x 2 to LAD and MIR x 1 to circumflex performed by Dr. Espinoza. -Severe non-culprit coronary artery disease * 60+% proximal LAD, 90% ostial/proximal D1. * 80% hazy mid circumflex. Small to medium OM2 75% ostial. -Successful PCI of proximal and mid LAD with 2 nonoverlapping drug-eluting stents (approximately 3.0 x 12 Xience postdilated with 3.5 NC; 2.5 x 18 [place] postdilated with 2.0 NC). -Successful PCI mid circumflex with single drug-eluting stent (2.5 x 15 mm Elpidio; postdilated with 3.0 NC). -Lipid panel within normal limits -HbA1c 5.4 -Troponin trended down -ECHO: EF 45 to 50%. Apical akinesis. Severe hypokinesis of mid anteroseptal septum. Normal RV size and function. Mild mitral regurgitation. Normal estimated RA and PA pressures. No prior studies for comparison. Continue aspirin, Brilinta, metoprolol succinate 50 mg daily, lisinopril 10 mg daily and atorvastatin 80 mg daily Appreciate cardiology input Needs follow-up with cardiology on discharge HTN Continue metoprolol succinate, lisinopril Blood pressure stable Mild AST, ALT elevations Likely due to above Monitor GERD: Continue PPI Hypothyroidism: TSH WNL Continue current levothyroxine DVT Px: SCDs/TEDs Code Status: FULL CODE Disposition: Home Total Time Total Time Spent Total Time Spent (In Minutes): 52 minutes Discharge Plan Discharge Items Patient Disposition: Home - Self-Care Reason For Visit: STEMI Discharge Diagnosis: ST elevation myocardial infarction Hypertension Condition on Discharge: Good Activity: As commented below Exercise/Sports: Wait until after follow-up appointment Non-emergency contact: Primary Care Provider and Electrical Accessories Ii Assembler Call non-emergency contact if: you have any medication questions, your symptoms worsen, your pain is concerning for you and you have a fever Follow-up/Referrals: Elías Espinoza MD [Physician] - Kelley Kathleen MD [Primary Care Provider] - (Date & Time 08/08/2025 8:20 AM Provider:Kelley Kathleen MD General Internal Medicine [facility] ) Diet: Heart Healthy Addtl Attending Provider Instructions: -- Follow-up with your primary care physician Dr. Kathleen on 08/08/2025 8:20 AM -- Follow-up with your printing machine operator tape rules Dr. Espinoza in 1 to 2 weeks as recommended Seek immediate medical attention if your symptoms reoccur or worsen Please review medication list provided on discharge for any medication changes as instructed. Please call if you have any questions or problems. You can reach a [facility] hospitalist on duty at [facility] 24 hours a day by calling [phone] Home Care: * Take your medications exactly as directed. Don't skip doses. * Remember that recovery after a heart attack takes time. Plan to rest for at lease 4-8 weeks while you recover. Then return to normal activity when your doctor says it's okay. * Ask your doctor about joining a heart rehabilitation program. * Tell your doctor if you are feeling depressed. Feelings of sadness are common after a heart attack, but it is important that you speak to someone if you are feeling overwhelmed by these feelings. * If you are having chest pain, call 911 for an ambulance. Do NOT drive yourself to the hospital. * Ask your family members to learn CPR. * Learn to take your own blood pressure and pulse. Keep a record of your results. Ask your doctor when you should seek emergency medical attention. He or she will tell you which blood pressure reading is dangerous. Lifestyle Changes: * Maintain a healthy weight. Get help to lose any extra pounds. * Cut back on salt. * Limit canned, dried, packaged, and fast foods. * Don't add salt to your food. * Season foods with herbs instead of salt when you cook. * Break the smoking habit. Enroll in a stop-smoking program to improve your chances of success. * Limit fatty foods. * Ask your doctor about having your lipid levels checked regularly. * Build up your activity according to your doctor's recommendation. * Ask your doctor when it's okay to resume sexual activity. * Tell your doctor about any erectile dysfunction (ED) medication you are taking. Some ED medications are not safe if you take certain heart medications. * Try to manage stress. Follow Up: It is important for you to keep your follow up appointments with your medical provider. Addtl Shrink Pit Operator Provider Instructions: POST PCI ACTIVITY RECOMMENDATIONS: Excess manipulation of the wrist should be avoided for the next 24-48 hours. * No lifting over 2 pounds (approximately a 1/2 gallon of milk) with the utilized arm for 24 hours. * No strenuous activity for 3 days. * Keep the site of the procedure covered with a bandage for 24 hours. *You may shower the day after the procedure. Do not take a tub bath or submerge the puncture site in water for the next 3 days. *Do not operate any motorized equipment today. SPECIAL CARE INSTRUCTIONS: The site may be slightly bruised and sore following your procedure. Should any of the following occur, contact the Dr. who performed your procedure. 1. Redness/inflammation, swelling, chills, or fever, or colored drainage at procedure site within 3-7 days after your procedure. 2. Coldness, discoloration, ongoing numbness, severe pain, or swelling. Expect mild tingling of hand and tenderness at the puncture site for up to three days. If this persists beyond three days, or other symptoms develop, notify the Dr. who performed your procedure. BLEEDING: If the procedure site on your wrist begins to bleed, do not panic 1. Place 1 or 2 fingers firmly just slightly above the insertion site to stop the bleeding. You may be able to feel your pulse as you hold pressure. 2. Lift your finger after 5 minutes to see if the bleeding has stopped. 3. Once the bleeding has stopped, gently wipe the wrist area clean with a bandage. * If the bleeding from your wrist does not stop after 10 minutes, or if there is a large amount of bleeding or spurting, call 911 (do not drive yourself to the hospital). SKIN IRRITATION: * You may experience some redness and/or swelling in the area where radiation was administered. If any skin irritation occurs, please contact your family physician. FOLLOW UP VISIT: Follow-up with Dr. Espinoza in 1 to 2 weeks. Office will reach out to schedule ([phone]). If questions between now and 1st visit can call Dr. Espinoza cell directly at [phone]. Pending Studies at Discharge: No Stand-Alone Forms: My [facility] [employer], Smoking Cessation Medications and DC Order Prescriptions: New ticagrelor [Brilinta] 90 mg Tablet 90 mg PO BID Qty: 60 1RF atorvastatin 80 mg tablet 80 mg PO QAM Qty: 30 1RF aspirin 81 mg Tablet,Delayed Release (Dr/Ec) 81 mg PO QAM Qty: 30 1RF pantoprazole 40 mg Tablet,Delayed Release (Dr/Ec) 40 mg PO QAM Qty: 30 1RF metoprolol succinate 50 mg tablet extended release 24 hr 50 mg PO DAILY Qty: 30 1RF Continued levothyroxine 50 mcg tablet 50 mcg PO DAILY lisinopril 10 mg tablet 10 mg PO DAILY alprazolam 0.25 mg tablet 0.25 mg PO DAILY PRN (Reason: Anxiety) riboflavin (vitamin B2) 100 mg tablet 100 mg PO DAILY PRN (Reason: Unknown) cholecalciferol (vitamin D3) [Vitamin D3] 25 mcg (1,000 unit) capsule 25 mcg PO DAILY simethicone 80 mg tablet,chewable 80 mg PO DAILY PRN (Reason: Constipation) nitroglycerin 0.4 mg tablet, sublingual 0.4 mg buccal ONCE PRN (Reason: Chest Pain) Discontinued famotidine 20 mg tablet 20 mg PO BID Discharge Orders: Discharge Order (Routine); Ordered 08/01/25 Ordered By: Johnny Avila Admission Data Admit Date/Time: 07/31/25 08:23 Attending Provider: Johnny Avila Admit Provider: Johnny Avila Primary Care Provider: Kelley Kathleen Other Providers: Elías Espinoza; Laura Yun; Johnny Avila
[2025-08-01 13:49] VITALS: PULSE 85; RESP 17
[2025-08-01 14:06] VITALS: BP 147/86
--- NOTE | 2025-08-01 16:25 | Electrocardiogram Report ---
Test Reason : Blood Pressure : */* mmHG Vent. Rate : 92 BPM Atrial Rate : 92 BPM P-R Int : 190 ms QRS Dur : 78 ms QT Int : 352 ms P-R-T Axes : 63 45 59 degrees QTcB Int : 435 ms Normal sinus rhythm Possible Left atrial enlargement Anteroseptal infarct (cited on or before 31-Jul-2025) Abnormal ECG When compared with ECG of 31-Jul-2025 07:54, Questionable change in initial forces of Septal leads ST no longer depressed in Lateral leads Nonspecific T wave abnormality now evident in Anterior leads Confirmed by Celso Garcia ([id number]) on 08/01/2025 4:25:32 PM Referred By: REFERRED SELF Confirmed By: Celso Garcia
== END 2025-08-01 15:30 | disposition home or self-care (01) | DRG 322 ==
LOC: ED 07:46 → CC 08:07 → 1E 08:23